=== PATIENT | female | born 1990 | race Caucasian/White ===

== ENCOUNTER 2019-10-19 22:42 | Emergency (ER) | payer OTHER ==
[~2019-10-19 22:42] MED LIST: SER25 PO
== END 2019-10-20 00:55 | disposition other institution (70) ==
LOC: ED 22:42
DX: Z02.89 Encounter for other administrative examinations (principal)

== ENCOUNTER 2019-10-19 22:42 | Emergency (ER) | payer OTHER ==
[~2019-10-19] VITALS: Ht 157.5 cm; Wt 68.9 kg
[2019-10-19 22:53] VITALS: Ht 157.5 cm; Wt 68.9 kg
[2019-10-19 23:47] LABS: CALCIUM 8.4 mg/dL (8.5-10.1); CARBON DIOXIDE 26.1 mmol/L (21-32); CREATININE SERUM 1.2 mg/dL (0.6-1.0); POTASSIUM SERUM 3.8 mmol/L (3.5-5.1)
[2019-10-19 23:56] LABS: BASOPHIL % 0.4 % (0-2); PLATELET COUNT 251 x10^3mcL (130-400); RED CELL DISTRIBUTION WIDTH 13.9 % (11.5-14.5)
[2019-10-20 00:54] VITALS: BP 134/84
== END 2019-10-20 00:55 | disposition other institution (70) ==
LOC: ED 22:42
PROVIDERS: Emergency Medicine
DX: R46.89 Other symptoms and signs involving appearance and behavior (principal); Z13.89 Encounter for screening for other disorder
CPT/HCPCS: 36415

== ENCOUNTER 2020-08-31 12:16 | Emergency (ER) | payer OTHER, SELFPAY ==
[~2020-08-31] VITALS: Ht 157.5 cm; Wt 81.6 kg
[2020-08-31 12:29] VITALS: BP 153/90; Ht 157.5 cm; Wt 81.6 kg
== END 2020-08-31 16:00 | disposition left against medical advice (07) ==
LOC: ED 12:16
DX: N39.0 Urinary tract infection, site not specified (principal); Z20.828 Contact with and (suspected) exposure to other viral communicable diseases
CPT/HCPCS: 87804; U0003

== ENCOUNTER 2020-08-31 20:35 | Emergency (ER) | payer OTHER, SELFPAY ==
[~2020-08-31] VITALS: Ht 157.5 cm; Wt 81.6 kg
[2020-08-31 20:57] VITALS: Ht 157.5 cm; Wt 81.6 kg
[2020-08-31 21:09] VITALS: BP 145/71
== END 2020-08-31 21:09 | disposition home or self-care (01) ==
LOC: ED 20:35
DX: N39.0 Urinary tract infection, site not specified (principal)
CPT/HCPCS: 87804; J0696; J2001; U0003